=== PATIENT | male | born 2000 | race American Indian/Alaskan Native ===

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

== ENCOUNTER 2020-02-29 19:33 | Emergency (ER) | payer BC, OTHER ==
[2020-02-29] MEDS ORDERED: Ketorolac 30 MG/ML SDV IM ONE (19:43)
--- NOTE | 2020-02-29 19:49 | EDM.PDOC ---
ED HPI GENERAL MEDICAL PROBLEM - General Chief Complaint: Chest Pain Stated Complaint: SHARP CHEST PAINS, NEGATIVE COVID TEST TODAY Time Seen by Provider: 02/29/20 19:44 Source of Information: Reports: Patient History Limitations: Reports: No Limitations - History of Present Illness INITIAL COMMENTS - FREE TEXT/NARRATIVE: states was restocking and been lifting heavy boxes, now mid chest hurts to breath. Right Middle Sternum Pain Score (Numeric/FACES): 5 - Related Data Allergies Allergy/AdvReac Type Severity Reaction Status Date / Time No Known Allergies Allergy Verified 07/21/18 14:13 Home Meds: Home Meds Doxycycline Monohydrate 100 mg PO BID 07/21/18 [History] Past Medical History - Past Health History Medical/Surgical History: Denies Medical/Surgical History HEENT History: Reports: None Cardiovascular History: Reports: None Respiratory History: Reports: None Gastrointestinal History: Reports: None Genitourinary History: Reports: None Musculoskeletal History: Reports: None Neurological History: Reports: None Psychiatric History: Reports: None Endocrine/Metabolic History: Reports: None Hematologic History: Reports: None Immunologic History: Reports: None Oncologic (Cancer) History: Reports: None Dermatologic History: Reports: None - Infectious Disease History Infectious Disease History: Reports: None - Past Surgical History Head Surgeries/Procedures: Reports: None Social & Family History - Family History Family Medical History: Noncontributory - Caffeine Use Caffeine Use: Reports: None ED ROS GENERAL - Review of Systems Review Of Systems: Comprehensive ROS is negative, except as noted in HPI. ED EXAM, GENERAL - Physical Exam Exam: See Below Exam Limited By: No Limitations General Appearance: Alert, WD/WN, No Apparent Distress Ears: Hearing Grossly Normal Throat/Mouth: Normal Voice, No Airway Compromise Head: Atraumatic Neck: Non-Tender, Full Range of Motion Respiratory/Chest: No Respiratory Distress, Other (anterior muscle spasm) Cardiovascular: Regular Rate, Rhythm GI/Abdominal: Soft, Non-Tender (Male) Exam: Deferred Rectal (Males) Exam: Deferred Neurological: Alert, Oriented, Normal Cognition, Normal Gait, No Motor/Sensory Deficits Psychiatric: Normal Affect, Normal Mood Skin Exam: Warm, Dry, Normal Color Lymphatic: No Adenopathy Course - Vital Signs Last Recorded V/S: Last Vital Signs Temp 37.5 C 02/29/20 19:44 Pulse 81 02/29/20 19:44 Resp 16 10/23/20 19:44 BP 126/85 02/29/20 19:44 Pulse Ox 98 02/29/20 19:44 - Orders/Labs/Meds Meds: Medications Discontinued Medications Generic Name Dose Route Start Last Admin Trade Name Dayron PRN Reason Stop Dose Admin Ketorolac Tromethamine 30 mg 02/29/20 19:43 02/29/20 19:59 Toradol IM 02/29/20 19:44 30 mg ONETIME ONE Administration Departure - Departure Time of Disposition: 20:00 Disposition: Home, Self-Care 01 Condition: Good Clinical Impression: Anterior chest wall pain, Muscle spasm - Discharge Information Instructions: Muscle Cramps and Spasms, [id number] Forms: ED Department Discharge Additional Instructions: 1) try heat to sore area 2) avoid bending lifting straining next 24 hours 3) take tylenol or motrin for pain 4) follow up at clinic Sepsis Event Note (ED) - Focused Exam Vital Signs: Vital Signs Temp Pulse Resp BP Pulse Ox 02/29/20 19:44 37.5 C 81 16 126/85 98
== END 2020-02-29 20:03 | disposition home or self-care (01) ==
LOC: DL.ED 19:33
DX: M62.838 Other muscle spasm (principal)
CPT/HCPCS: 96372; 99284; J1885

== ENCOUNTER 2021-10-24 10:09 | Emergency (ER) | payer BC, OTHER | END 2021-10-24 10:45 | disposition home or self-care (01) | LOC: DL.ED 10:09 | DX: L02.818 Cutaneous abscess of other sites (principal) | CPT/HCPCS: 99282 ==